=== PATIENT | female | born 1985 | race Caucasian/White ===

== ENCOUNTER 2017-04-12 15:52 | Emergency (ER) | payer OTHER ==
[2017-04-12] MEDS ORDERED: MUCINEX DM ER1 EAC1 PO (16:21)
== END 2017-04-12 18:18 ==
LOC: EDMED 15:52
DX: S16.1XXA Strain of muscle, fascia and tendon at neck level, initial encounter (principal); S96.911A Strain of unspecified muscle and tendon at ankle and foot level, right foot, initial encounter; V43.52XA Car driver injured in collision with other type car in traffic accident, initial encounter; Z87.891 Personal history of nicotine dependence